=== PATIENT | female | born 1990 | race Two or more races ===

== ENCOUNTER 2017-02-28 18:58 | Emergency (ER) | payer MEDICAID ==
[~2017-02-28] VITALS: Ht 160 cm; Wt 97.1 kg
[2017-02-28] MEDS ORDERED: NKM (19:16)
[2017-02-28] MEDS ORDERED: Metoclopramide 10mg/2ml Inj IVP ONE (19:30)
--- NOTE | 2017-02-28 19:50 | Emergency Room Report ---
History of Present Illness General Chief Complaint: Vomiting Source: Patient Present Illness HPI 26YOF walk-in with 2 weeks nausea/vomiting and diarrhea. 6x a day. Denies abd pain S/p paco, "tubes tied" No urinary complaints No change in stool caliber No sick contacts No foreign travel Hasnt been to other ER, hospital Allergies: Coded Allergies: No Known Allergies (Unverified , 02/28/17) Patient History Past Medical History: none Past Surgical History: paco, other - Tubes tied Pertinent Family History: none Social History: Denies: alcohol use, drug use, smoking Last Menstrual Period: January Now: No Immunizations: UTD Reviewed Nursing Documentation: PMH: Agreed, PSxH: Agreed Nursing Documentation-PMH Past Medical History: No Stated History Review of Systems All Other Systems: negative except mentioned in HPI Physical Exam Vital Signs Date Time Temp Pulse Resp B/P Pulse Ox O2 Delivery O2 Flow Rate FiO2 02/28/17 19:10 98.1 88 16 133/90 100 Room Air Sp02 EP Interpretation: reviewed, normal General Appearance: normal inspection, well appearing, no apparent distress, alert, GCS 15, non-toxic Head: normocephalic, atraumatic Eyes: bilateral eye EOMI, bilateral eye PERRL ENT: normal ENT inspection, hearing grossly normal, normal voice Neck: normal inspection, full range of motion, supple, no bony tend Respiratory: normal inspection, lungs clear, normal breath sounds, no respiratory distress, no retraction, no wheezing Cardiovascular #1: regular rate, rhythm, no edema Gastrointestinal: normal inspection, normal bowel sounds, non tender, soft, no mass, no guarding, no hernia, no pulsatile mass, no rebound Genitourinary: no CVA tenderness Musculoskeletal: normal inspection, back normal, normal range of motion, Rosita' s Sign negative Neurologic: normal inspection, alert, oriented x3, responsive, nursing secretary III-XII nml as tested, motor strength/tone normal, speech normal Psychiatric: normal inspection, judgement/insight normal, mood/affect normal Skin: normal inspection, normal color, no rash Medical Decision Making Diagnostic Impression: Primary Impression: Nausea & vomiting Qualified Codes: R11.2 - Nausea with vomiting, unspecified Additional Impression: Diarrhea Qualified Codes: A09 - Infectious gastroenteritis and colitis, unspecified ER Course Nausea, vomiting, diarrhea - VSS. Afebrile - Mild leuks. No metabolic abnormalities. UA negative for UTI - ?Infectious diarrhea - not on Abx recently. Low suspicion for Cdiff. No foreign travel, camping. Unlikely ova/parasites. - Initial Cipro given in ED. Rx for 3 day course - Abdomen serially negative on exam, unlikely acute surgical process requiring additional management, imaging at this time DC with bentyl PRN diarrhea Understands to return for worsening symptoms Last Vital Signs Date Time Temp Pulse Resp B/P Pulse Ox O2 Delivery O2 Flow Rate FiO2 02/28/17 19:10 98.1 88 16 133/90 100 Room Air Status: improved Disposition: HOME, SELF-CARE Scripts Dicyclomine Hcl* (BENTYL*) 10 Mg Capsule 10 MG ORAL BID for 3 Days, #6 CAP Prov: FADY CALDERON M.D. 02/28/17 Ciprofloxacin* (CIPRO*) 500 Mg Tablet 500 MG PO BID for 3 Days, #5 TAB Prov: FADY CALDERON M.D. 02/28/17 FADY CALDERON M.D. Feb 28, 2017 19:50
[2017-02-28 19:57] LABS: BASOPHILS % (AUTO) 1.2 % (0.0-2.0); EOSINOPHILS % (AUTO) 1.4 % (0.0-3.0); MEAN CORPUSCULAR HEMOGLOBIN 30.9 PG (27.0-31.0); MEAN CORPUSCULAR HGB CONC 33.8 G/DL (32.0-36.0); MEAN CORPUSCULAR VOLUME 91 FL (80-99); MEAN PLATELET VOLUME 7.4 FL (6.5-10.1); MONOCYTES % (AUTO) 5.7 % (1.0-10.0); NEUTROPHILS % (AUTO) 66.7 % (45.0-75.0); PLATELET COUNT 318 K/UL (150-450); RED BLOOD COUNT 3.91 M/UL (4.20-5.40); RED CELL DISTRIBUTION WIDTH 11.9 % (11.6-14.8); WHITE BLOOD COUNT 11.7 K/UL (4.8-10.8)
[2017-02-28 20:05] LABS: APPEARANCE,URINE CLEAR; KETONES,URINE NEGATIVE (NEGATIVE); LEUKOCYTE ESTERASE ,URINE NEGATIVE (NEGATIVE); NITRITE,URINE NEGATIVE (NEGATIVE); PH,URINE 5 (4.5-8.0); PROTEIN,URINE NEGATIVE (NEGATIVE); UROBILINOGEN,URINE NORMAL MG/DL (0.0-1.0)
[2017-02-28 20:12] LABS: BACTERIA,URINE FEW /HPF; SQUAMOUS EPITHELIAL CELL,UR FEW /LPF (NONE/OCC); WBC,URINE 0-2 /HPF (0 - 2)
[2017-02-28 20:23] LABS: ALANINE AMINOTRANSFERASE 12 U/L (3-33); ALBUMIN/GLOBULIN RATIO 1.4 (1.0-2.7); ANION GAP 15 (5-15); ASPARTATE AMINO TRANSFERASE 17 U/L (5-40); CARBON DIOXIDE 24 mEQ/L (20-30); CHLORIDE 99 mEQ/L (98-107); CREATININE 0.9 mg/dL (0.5-0.9); GLOMERULAR FILTRATION RATE > 60 mL/min (>60); HEMOLYSIS 2; LIPASE 35 U/L (< 60); POTASSIUM 3.4 mEQ/L (3.4-4.9); SODIUM 138 mEQ/L (135-145); TOTAL PROTEIN 7.6 g/dL (6.6-8.7)
[2017-02-28] MEDS ORDERED: CIPRO500 MG PO (20:49)
[2017-02-28] MEDS ORDERED: BENTYL10 MG ORAL (20:49)
[2017-02-28] MEDS ORDERED: Ciprofloxacin 500mg tab ORAL ONE (21:00)
[2017-02-28 21:07] VITALS: BP 133/90
== END 2017-02-28 21:00 | disposition home or self-care (01) ==
LOC: EMR 19:33
DX: R11.2 Nausea with vomiting, unspecified (principal); R19.7 Diarrhea, unspecified
CPT/HCPCS: 36415; 80053; 81003; 81025; 83690; 85025; 96361; 96374; 99284; J2765; 96360